=== PATIENT | female | born 1950 | race Caucasian/White ===

== ENCOUNTER 2018-02-28 22:03 | Inpatient (IN) ==
[2018-02-28] MEDS ORDERED: IOPAMIDOL 100 ML BOTTLE IV ONE (22:04)
--- NOTE | 2018-02-28 22:11 | Emergency Department Note ---
Abdominal Pain HPI - General Chief Complaint: Abdominal Pain Stated Complaint: abdominal pain Time Seen by Provider: 02/28/18 22:08 Source: patient Mode of arrival: ambulatory Limitations: no limitations - History of Present Illness HPI Narrative: 67 year old female seen previously on 02/26/18 with RUQ abdominal pain/ epigastric abdominal pain radiating to back, seen in ER with workup including aortic US which was negative for aneurysm/dissection nor other pathology, with CBC demonstrating leukocytosis at 13.8, presenting after improvement of pain last night with opiate therapy. Pain resolved until tonight at 6pm. Last meal at 5pm, then began having significant RUQ abdominal tenderness radiating to back , rated 10/10 currently. Mild nausea, no emesis present. No diarrhea, nor constipation. - Related Data Home Medications Medication Instructions Recorded Confirmed LORazepam [Ativan] 0.5 mg PO BIDP PRN 12/16/16 03/24/17 Metoprolol Tartrate [Lopressor] 50 mg PO BID 12/16/16 03/24/17 Simvastatin [Zocor] 10 mg PO HS 12/16/16 03/24/17 amLODIPine BESYLATE/BENAZEPRIL 1 capsule PO DAILY 12/16/16 03/24/17 [Amlodipine-Benazepril 5-10 mg] Hydrochlorothiazide [Oretic] 12.5 mg PO DAILY 03/24/17 03/24/17 Zolpidem Tartrate [Ambien] 10 mg PO HS 03/24/17 03/24/17 ergocalciferol (vitamin D2) 50,000 50,000 unit PO QWEEK 08/31/17 08/31/17 unit capsule levofloxacin 750 mg tablet 750 mg PO QDAY tab 08/31/17 08/31/17 naproxen 500 mg tablet 250 mg PO BID tab 08/31/17 08/31/17 oxycodone 5 mg tablet 5 mg PO .COMPLEX PRN tab 08/31/17 08/31/17 Allergies Allergy/AdvReac Type Severity Reaction Status Date / Time codeine Allergy Itching Verified 12/29/16 15:07 Review of Systems All systems ED: reviewed and negative except as stated. Abdominal Pain PMH - Past Medical History Attestation: Yes: The following information was validated with the patient. Medical history: Reports: cancer, hyperlipidemia, hypertension - Social History Smoking status: Former smoker Alcohol use: Reports: Occasionally Drug use: Reports: none Physical Exam Limitations: no limitations General appearance: alert, anxious, in no apparent distress Head: atraumatic, normocephalic Eye: Present: normal appearance, PERRL, EOMI ENT: normal exam, normal oropharynx, mucous membranes moist Neck: Present: normal inspection, full ROM Chest: Present: normal inspection, symmetric chest wall rise Respiratory: Present: normal lung sounds bilaterally. Absent: respiratory distress, rales/crackles, wheezes Cardiovascular: Present: regular rate, normal rhythm, normal heart sounds. Absent: systolic murmur, diastolic murmur Abdominal: Present: soft, distention, tenderness, rebound, Jo's sign. Absent: guarding Extremities: Present: normal inspection, full ROM Back: Present: normal inspection, full ROM, tenderness, CVA tenderness (R) Course Vital Signs Temperature 97.6 F 02/28/18 22:04 Pulse Rate 78 02/28/18 22:04 Respiratory Rate 19 02/28/18 22:04 Blood Pressure 108/91 02/28/18 22:04 Pulse Oximetry (%) 98 02/28/18 22:04 Temperature 97.6 F 02/28/18 22:04 Pulse Rate 78 02/28/18 22:04 Respiratory Rate 19 02/28/18 22:04 Blood Pressure 108/91 02/28/18 22:04 Pulse Oximetry (%) 98 02/28/18 22:04 Abdominal Pain - MDM Narrative Medical decision making narrative: with previous leukocytosis at 13.8 and + jo's sign, however also with history of diverticulosis, underwent CT abdomen w/contrast which demonstrated acute gallbladder wall thickening with gallstones present. Patient underwent CBC , lactic acid, lipase, which demonstrated leukocytosis at 11.8. Given 1mg IV Dilaudid with improvement to pain from 10/10 down to 2/10. Consulted general surgery, who agreed to admit patient for acute cholecystitis. Admitted in fair condition. - Lab Data Lab results reviewed: Yes I reviewed the patient's lab results. Result diagrams: 02/28/18 22:15 02/28/18 22:15 Lab Results 02/28/18 02/28/18 Range/Units 22:15 22:15 WBC 11.9 H (4.5-11.0) K/mcL RBC 4.57 (4.00-5.20) M/mcL Hgb 12.5 (12.0-15.0) g/dL Hct 37.7 (36.0-48.0) % MCV 82.6 (80.0-100.0) fL MCH 27.5 (26.0-34.0) pg MCHC 33.3 (31.0-36.0) g/dL RDW 13.1 (11.5-14.5) % Plt Count 262 (140-440) K/mcL MPV 9.1 (7.4-10.4) fL Gran % 79.0 H (38.0-78.0) % Lymph % (Auto) 13.6 L (15.5-49.0) % [facility] % (Auto) 6.3 (1.0-12.0) % Eos % (Auto) 0.7 (0.0-7.0) % Baso % (Auto) 0.4 (0.0-2.0) % Gran # 9.5 H (1.8-8.0) K/mcL Lymph # (Auto) 1.6 (1.5-4.8) K/mcL [facility] # (Auto) 0.7 (0.1-0.9) K/mcL Eos # (Auto) 0.1 (0.0-0.7) K/mcL Baso # (Auto) 0 (0.0-0.3) K/mcL VBG Lactic Acid 1.2 (0.5-2.0) mmol/L - Radiology Data Radiology results reviewed: Yes I reviewed the patient's radiology results. Disposition Pt seen by PIE CHEF/PA only: No Clinical Impression: Acute cholecystitis Disposition: Xfer As Inpt ([facility]) Referrals: Lulu Altamirano ARNP [Primary Care Provider] -
[2018-02-28] MEDS ORDERED: PANTOPRAZOLE 40 MG VIAL IV ONE (22:19)
[2018-02-28] MEDS ORDERED: 0.9 % SODIUM CHLORIDE 1,000 ML IV ONE (22:19)
[2018-02-28] MEDS ORDERED: ONDANSETRON 4 MG/2 ML VIAL IV ONE (22:19)
[2018-02-28] MEDS ORDERED: HYDROmorphone 2 MG/ML VIAL IV SCH (22:30)
[2018-02-28 23:10] LABS: Basophils # (Auto) 0 K/mcL (0.0-0.3); Basophils % (Auto) 0.4 % (0.0-2.0); Eosinophils # (Auto) 0.1 K/mcL (0.0-0.7); Eosinophils % (Auto) 0.7 % (0.0-7.0); Lymphocytes # (Auto) 1.6 K/mcL (1.5-4.8); Lymphocytes % (Auto) 13.6 % (15.5-49.0); Mean Cell Volume 82.6 fL (80.0-100.0); Mean Corpuscular HGB Conc 33.3 g/dL (31.0-36.0); Mean Corpuscular Hemoglobin 27.5 pg (26.0-34.0); Monocytes # (Auto) 0.7 K/mcL (0.1-0.9); Monocytes % (Auto) 6.3 % (1.0-12.0); Platelet Count 262 K/mcL (140-440); RBC 4.57 M/mcL (4.00-5.20); Red Cell Distribution Width 13.1 % (11.5-14.5)
[2018-02-28] MEDS ORDERED: ONDANSETRON 4 MG/2 ML VIAL IV PRN (23:28)
[2018-02-28 23:36] LABS: ALT/SGPT 58 U/l (0-40); Albumin/Globulin Ratio 1.1 (1.0-2.3); Alkaline Phosphatase 187 U/L (39-117); Blood Urea Nitrogen 9 mg/dl (8-23); Lipase 16 U/L (7-60)
[2018-02-28] MEDS: 0.9 % SODIUM CHLORIDE 1,000 ML IV SCH (23:55)
[2018-03-01] MEDS: 0.9 % SODIUM CHLORIDE 10 ML SYRINGE IV SCH ×3 (04:14→20:37)
--- NOTE | 2018-03-01 05:28 | Cat Scan Report ---
CLINICAL INFORMATION: Right-sided abdominal pain. History of lung carcinoma COMPARISON: Chest CT from over one year prior 12/16/2016 TECHNIQUE: Following enteric contrast, 80 cc of Isovue-300 were injected and 60 seconds later, 0.625 mm helical slices were obtained from the mid heart through the iliac crest. Following reconstructions, sagittal, coronal and axial reformations were processed. Exam was reviewed at bone, lung and soft tissue windows Eight minutes later repeat 0.625 mm helical slices were obtained through the kidneys.The exam was performed using radiation dose optimization techniques including, but not limited to, automated exposure control, adjustment of the mA and/or kV according to patient size and use of iterative reconstruction technique. FINDINGS: Lung bases show a small (18 mm) defect in the chest wall in the anterior basilar segment of the left lower lobe region. The deficiency consists of the parietal pleura and intercostal musculature allowing a small focus of lung to herniate through the chest wall. There is a small amount of associated scarring within the lung parenchyma. There are no effusions. Visualized heart is normal. Images through the abdomen again show a 22 mm high attenuation lesion in the posterior segment right hepatic lobe (image 45). It is unchanged from the CT over one year prior and should be considered a benign hemangioma. 15 mm simple cyst in the medial segment left hepatic lobe is also unchanged. The gallbladder wall is now moderately thickened with multiple stones patible with cholecystitis. Intrahepatic and common bile ducts are normal caliber: CBD is 5 mm. Both kidneys, adrenal glands, spleen, pancreas and aorta including aortic branches are normal in size, configuration and attenuation without focal lesion. There is no free air, free fluid or adenopathy. Small diverticuli arising the duodenum are unchanged: 22 mm in the proximal transverse segment and 22 mm the distal transverse segment. The remaining visualized small bowel, stomach and colon are unremarkable. Bone windows show only mild degenerative changes in the lumbar spine. IMPRESSION: 1. Cholecystitis. Bile ducts are normal caliber - no evidence for choledocholithiasis. 2. 22 mm hemangioma posterior segment of the right hepatic lobe and 15 cm simple cyst lateral segment left hepatic lobe are both stable since a CT one year prior. History of lung carcinoma acknowledged - no evidence of abdominal metastases. 3. Small (18 mm) focal chest wall defect, consisting of the parietal pleura and intercostal musculature, in the anterior segment of the left lower lobe. This has allowed a small focus of lung herniation. It is new from the previous CT. It may predispose to future pneumothorax development. 4. Two (20 mm) diverticuli arising from the transverse duodenum - stable Interpreted and Authenticated by: Dimas Quiñonez 03/01/18
[2018-03-01] MEDS: 0.9 % SODIUM CHLORIDE 1,000 ML IV SCH ×6 (06:23→22:04)
[2018-03-01] MEDS ORDERED: HYDROmorphone 2 MG/ML VIAL IV PRN (07:30)
[2018-03-01] MEDS ORDERED: ONDANSETRON 4 MG/2 ML VIAL IV PRN ×3 (07:30→14:39)
[2018-03-01] MEDS ORDERED: PANTOPRAZOLE 40 MG VIAL IV SCH (07:30)
[2018-03-01] MEDS: PIPERACILLIN SODIUM/TAZOBACTAM 3.375 GM in DEXTROSE 5% IN WATER 50 ML IV SCH ×5 (09:18→23:36)
--- NOTE | 2018-03-01 09:26 | XRay Report ---
CLINICAL INFORMATION: preop evaluation COMPARISON: 02/26/2018 FINDINGS: Heart is upper limits normal in size. Mediastinum and pulmonary vessels are unremarkable.. Left upper lobectomy changes featuring increased density in the paramediastinal left upper lobe and left lung volume loss resulting in leftward cardiomediastinal shift are seen as before before. No infiltrates or effusions. Bones and soft tissues normal IMPRESSION: No acute disease - stable Interpreted and Authenticated by: Dimas Quiñonez 03/01/18
--- NOTE | 2018-03-01 10:14 | General Surg History&Physical ---
History of Present Illness Patient information: Note initiated : 03/01/18 at 10:11 am Service Date, if different from initiated Date: [] Patient: Celia Baltazar a 67 y/o F admitted on 02/28/18 for abdominal pain. Chief Complaint: [] HPI: Ms. Baltazar is a 67 year old F admitted with acute abdominal pain with findings of cholecystitis. The patient had onset of epigastric and right upper quadrant pain 2 days prior to admission. She was seen in the emergency room on 26 February and was treated and discharged. Her pain continued and worsened yesterday. She returned to the emergency room where CT scan showed a thickened gallbladder with multiple gallstones. The pain is continuous. She has nausea but no vomiting. She has constant pressure in her upper abdomen and back on the right side.. Patient has acute cholecystitis with cholelithiasis and is admitted for treatment. Review of Systems - Constitutional snoring - EENT Nose, mouth and throat: abnormal hearing, dysphagia, no hoarseness, no vertigo - Breasts no mass, no pain, no swelling - Cardiovascular chest pain with activity, dyspnea on exertion, pedal edema - Respiratory dyspnea on exertion, snoring, pain with cough, no wheezing - Gastrointestinal abdominal pain, bloating, heartburn, nausea, no constipation, no diarrhea, no vomiting - Genitourinary Genitourinary: no difficulty urinating, no urinary incontinence - Musculoskeletal arthralgias, back pain, myalgias - Integumentary no pruritus, no rash, no sores - Neurological restless legs, no confusion, no convulsions, no memory loss, no syncope, no tremor(s) - Psychiatric no anxiety, no depression, no paranoia - Endocrine no fatigue, no palpitations - Hematologic/Lymphatic no easy bleeding, no easy bruising, no lymphadenopathy - Allergic/Immunologic no tongue swelling, no throat swelling, no uticaria, no wheezing, no lip swelling Past History Past medical history: History of lung cancer, status post left upper lobectomy; no chemotherapy needed Hypertension Denies heart disease, lung disease or liver disease, denies bleeding disorder Chronic obstructive sleep apnea, severe Past surgical history: Left upper lobectomy for lung cancer Past family history: Mother age 76 due to lung cancer Father age 81 due to abdominal aortic aneurysm rupture Diabetes mellitus and coronary artery disease Past social history: Stop tobacco use in 2016 History of heavy alcohol use up to 1 pint per day stopped 10 months ago No drug use in the past 30 years Medications and Allergies Home Medications Medication Instructions Recorded Confirmed Type Metoprolol Tartrate [Lopressor] 50 mg PO BID 12/16/16 03/01/18 History Simvastatin [Zocor] 10 mg PO HS 12/16/16 03/01/18 History amLODIPine BESYLATE/BENAZEPRIL 1 capsule PO DAILY 12/16/16 03/01/18 History [Amlodipine-Benazepril 5-10 mg] Allergies Allergy/AdvReac Type Severity Reaction Status Date / Time codeine Allergy Itching Verified 12/29/16 15:07 Exam Temp Pulse Resp BP Pulse Ox 97.2 F 84 18 128/77 94 03/01/18 07:34 03/01/18 04:00 03/01/18 07:34 03/01/18 07:34 03/01/18 07:34 - General physical appearance well developed, well nourished, no distress, moderate pain - Eyes PERRL, normal ocular movement. negative: icteric - ENT normal pinna, normal nares, normal mucosa, no congestion, decreased hearing, poor senior care (multiple missing teeth) - Head Head exam IM: Present: atraumatic, normal inspection, normocephalic - Neck no masses, no bruits, trachea midline, no lymphadenopathy, no venous distension - Cardiovascular Cardiovascular exam IM: Present: normal rate and rhythm, RRR, +S1, +S2. Absent : JVD, tachycardia - Respiratory normal expansion, normal respiratory effort, clear to auscultation - Abdomen Abdomen: Present: soft, non tender, bowel sounds Hernia: Present: none - Genitourinary Present: normal external genitalia - Integumentary Present: no rash, no growths, no abnormal pigmentation - Neurologic Present: normal coordination, normal sensation - Musculoskeletal Present: normal gait, normal posture - Psychiatric Present: oriented to time, oriented to person, oriented to place, speech is normal, memory intact Assessment and Plan (1) Cholelithiasis and cholecystitis without obstruction Patient counseled for laparoscopic cholecystectomy which will be done later today Status: Acute (2) Chronic intermittent hypoxia with obstructive sleep apnea Status: Acute (3) History of lung cancer Status: Chronic (4) Bipolar disorder Status: Chronic (5) Hypertension Status: Chronic
[2018-03-01] MEDS ORDERED: GLYCOPYRROLATE 0.2 MG/ML VIAL IV ONE (12:20)
[2018-03-01] MEDS ORDERED: MIDAZOLAM 2 MG/2 ML VIAL IV ONE (12:20)
[2018-03-01] MEDS ORDERED: KETAMINE 100 MG/ML ML IV ONE (12:20)
[2018-03-01] MEDS ORDERED: PROPOFOL 200 MG/20 ML VIAL IV ONE (12:20)
[2018-03-01] MEDS ORDERED: fentaNYL 100 MCG/2 ML VIAL IV ONE ×2 (12:20→13:36)
[2018-03-01] MEDS ORDERED: LIDOCAINE HCL/PF 100 MG/5 ML SYRINGE IV ONE (12:20)
[2018-03-01] MEDS ORDERED: ONDANSETRON 4 MG/2 ML VIAL IV ONE (12:20)
--- NOTE | 2018-03-01 13:18 | Brief Operative Note ---
Date of procedure: 03/01/18 Pre-op diagnosis: ACUTE CHOLECYSTITIS WITH CHOLELITHIASIS Post-op diagnosis: other (ACUTE CHOLECYSTITIS WITH CHOLELITHIASIS) Procedure: LAPAROSCOPIC CHOLECYSTECTOMY Grafts/Implants: No Anesthesia: GETA Findings: ACUTE AND CHRONIC INFLAMMATION OF GALLBLADDER WITH STONES Complications: none Surgeon: Adrian Silver Estimated blood loss (cc): 10 Specimens Removed/Pathology: other (GALLBLADDER) Condition: stable Disposition: PACU
[2018-03-01] MEDS ORDERED: MEPERIDINE 50 MG/ML INJECTION IM PRN (13:36)
[2018-03-01] MEDS ORDERED: ACETAMINOPHEN 1,000 MG/100 ML BOTTLE IV ONE (13:36)
[2018-03-01] MEDS ORDERED: KETOROLAC 15 MG/ML VIAL IV PRN (13:36)
[2018-03-01] MEDS ORDERED: IPRATROPIUM/ALBUTEROL 3 ML AMPUL.NEB NEB PRN (13:36)
[2018-03-01] MEDS ORDERED: MEPERIDINE 25 MG/ML SYRINGE IV PRN (13:36)
[2018-03-01] MEDS ORDERED: PROMETHAZINE 25 MG/ML VIAL IM PRN (13:36)
[2018-03-01] MEDS: fentaNYL 100 MCG/2 ML VIAL IV PRN ×4 (13:38→14:17)
[2018-03-01] MEDS ORDERED: LACTATED RINGERS 1,000 ML IV SCH (13:45)
[2018-03-01] MEDS: HYDROmorphone 2 MG/ML VIAL IV PRN ×3 (14:50→22:06)
[2018-03-01] MEDS: PANTOPRAZOLE 40 MG VIAL IV SCH (17:37)
[2018-03-02] MEDS: HYDROmorphone 2 MG/ML VIAL IV PRN ×4 (02:05→10:38)
[2018-03-02 05:57] LABS: Basophils # (Auto) 0 K/mcL (0.0-0.3); Basophils % (Auto) 0 % (0.0-2.0); Eosinophils # (Auto) 0 K/mcL (0.0-0.7); Eosinophils % (Auto) 0 % (0.0-7.0); Granulocytes % (Auto) 90.5 % (38.0-78.0); Lymphocytes # (Auto) 0.9 K/mcL (1.5-4.8); Lymphocytes % (Auto) 5.1 % (15.5-49.0); Mean Cell Volume 85.1 fL (80.0-100.0); Mean Corpuscular HGB Conc 33.7 g/dL (31.0-36.0); Mean Corpuscular Hemoglobin 28.7 pg (26.0-34.0); Monocytes # (Auto) 0.8 K/mcL (0.1-0.9); Monocytes % (Auto) 4.4 % (1.0-12.0); Platelet Count 238 K/mcL (140-440); RBC 3.75 M/mcL (4.00-5.20); Red Cell Distribution Width 14.5 % (11.5-14.5)
[2018-03-02] MEDS: PIPERACILLIN SODIUM/TAZOBACTAM 3.375 GM in DEXTROSE 5% IN WATER 50 ML IV SCH ×2 (06:04→11:22)
[2018-03-02] MEDS: 0.9 % SODIUM CHLORIDE 10 ML SYRINGE IV SCH (06:05)
[2018-03-02] MEDS: PANTOPRAZOLE 40 MG VIAL IV SCH (06:54)
--- NOTE | 2018-03-02 13:25 | Discharge Summary ---
Providers - Providers Patient information: Note initiated : 03/02/18 at 1:23 pm Service Date, if different from initiated Date: [] Patient: Celia Baltazar 67 y/o F admitted on 02/28/18 for abdominal pain. Chief Complaint: [] Date of admission: 02/28/18 Discharge date: 03/02/18 Attending physician: Adrian Silver Hospitalization Hospital course: 67-year-old female with diagnosed gallstone disease who presents with acute abdominal pain nausea and vomiting. She had evidence of gallstones thickened gallbladder wall and leukocytosis. Patient underwent laparoscopic cholecystectomy yesterday. She had very thickened gallbladder packed with gallstones with purulent bile. She had successful cholecystectomy. She had moderate pain in the postoperative period but is now stable. She is discharged home in satisfactory condition. She will have follow-up in the office on 14 March. Discharge diagnosis: acute and chronic cholecystitis with cholelithiasis Secondary discharge diagnosis: Chronic obstructive lung disease Chronic obstructive sleep apnea History of lung cancer Reason for admission: abdominal pain nausea and vomiting Procedures: Laparoscopic cholecystectomy Pertinent studies/significant findings: CT of abdomen and pelvis with contrast Complications: None Exam Temp Pulse Resp BP Pulse Ox 98 F 84 20 120/65 95 03/02/18 11:57 03/02/18 03:57 03/02/18 11:57 03/02/18 11:57 03/02/18 11:57 - General physical appearance well developed, well nourished, no distress - Eyes PERRL, normal ocular movement - ENT normal pinna, normal nares, normal mucosa, no hearing loss, no congestion - Head Head exam IM: Present: atraumatic, normocephalic - Neck no masses, no bruits, trachea midline, no lymphadenopathy, no venous distension - Cardiovascular Cardiovascular exam IM: Present: normal rate and rhythm, RRR, +S1, +S2. Absent : JVD, tachycardia - Respiratory normal expansion, normal respiratory effort, clear to auscultation - Abdomen Abdomen: Present: soft, tender (mild tenderness both operative sites otherwise benign exam), bowel sounds Hernia: Present: none - Genitourinary Present: normal external genitalia - Integumentary Present: no rash, no growths, no abnormal pigmentation - Neurologic Present: normal coordination, normal sensation - Musculoskeletal Present: normal gait, normal posture - Psychiatric Present: oriented to time, oriented to person, oriented to place, speech is normal, memory intact Discharge Plan - Patient/Caregiver Discharge Instructions Activity: increase activity as tolerated Diet: Regular Diet, Low Fat Prescriptions: Ciprofloxacin [Cipro] 500 mg PO BID #14 tab Meperidine [Demerol] 50 mg PO Q4HP PRN #30 tab PRN Reason: Pain Level > 6 - Follow up Plan Follow up with: Lulu Altamirano ARNP [Primary Care Provider] - Disposition: Home, Self-Care Prognosis: Good Rehab Potential: Good I certify that the patient requires SNF services.: No Overall status at discharge: patient is not back to baseline Pending Studies Resuscitation Status Full Code Diet Regular Diet Start Sat Mar 02 637 Hydromorphone HCl (Dilaudid) 1 mg IV Q2HP PRN PRN Reason: PAIN LEVEL > 6 Last Admin: 03/02/18 10:38 Dose: 1 mg Admin: 03/02/18 08:00 Dose: 1 mg Admin: 03/02/18 04:25 Dose: 1 mg Admin: 03/02/18 02:05 Dose: 1 mg Admin: 03/01/18 22:06 Dose: 1 mg Admin: 03/01/18 18:54 Dose: 1 mg Admin: 03/01/18 14:50 Dose: 1 mg Piperacillin Sod/Tazobactam (Sod 3.375 gm/ Dextrose) 50 mls @ 100 mls/hr IV Q6H [facility] Last Admin: 03/02/18 11:22 Dose: 100 mls/hr Infusion: 03/02/18 06:40 Dose: 0 mls/hr Admin: 03/02/18 06:04 Dose: 100 mls/hr Infusion: 03/02/18 00:06 Dose: 100 mls/hr Admin: 03/01/18 23:36 Dose: 100 mls/hr Infusion: 03/01/18 19:20 Dose: 100 mls/hr Admin: 03/01/18 18:50 Dose: 100 mls/hr Infusion: 03/01/18 15:31 Dose: 0 mls/hr Admin: 03/01/18 14:51 Dose: 100 mls/hr Pantoprazole Sodium (Protonix) 40 mg IV BIDAC [facility] Last Admin: 03/02/18 06:54 Dose: 40 mg Admin: 03/01/18 17:37 Dose: 40 mg Sodium Chloride (Saline Flush) 10 ml IV Q8 PITO Last Admin: 03/02/18 06:05 Dose: 10 ml Admin: 03/01/18 20:37 Dose: Not Given Shift Summary 03/02/18 04:45 Shift Summary by Silvia Patton Pt is up to bathroom with SBA to at rosa maria. IV SL receiving ABO. Pt receiving Dilaudid 1mg for pain last given at 0400. Pt hopes to discharge today. Will update with verbal report. Initialized on 03/02/18 04:45 - END OF NOTE
--- NOTE | 2018-03-05 17:21 | Surgical Pathology Report ---
HISTOLOGY SPECIMEN MICROSCOPIC DIAGNOSIS GALLBLADDER, CHOLECYSTECTOMY: -- ACUTE AND CHRONIC CHOLECYSTITIS WITH ADENOMYOMATOUS HYPERPLASIA AND CHOLELITHIASIS. (RLF:sln) PROCEDURAL IMPRESSION Cholecystitis; cholelithiasis. GROSS DESCRIPTION Received in formalin labeled with the patient information, is a almonte-stewart gallbladder. It is 6.7 x 3.4 x 2.1 cm. There are multiple metal clips identified. The duct is stapled. This is inked black. There is a 0.8 cm stone wedged into the duct. The mucosa is pink-stewart and covered with clear viscous fluid. The wall contains black stones from less less than 0.1 to 0.8 cm and has multiple cavities from less than 0.1 to 1.1 cm. The wall is up to 0.7 cm thick. Naphthalene Operator sections submitted in two cassettes. (SCB:adj) Electronically Signed by: Kaila Polanco M.D.
--- NOTE | 2018-03-06 14:04 | Operative Note ---
DATE OF OPERATION: 03/01/2018 PEOPERATIVE DIAGNOSIS: Acute cholecystitis with cholelithiasis. POSTOPERATIVE DIAGNOSIS: Acute cholecystitis with cholelithiasis. PROCEDURE: Laparoscopic cholecystectomy. SURGEON: Adrian Silver MD FINDINGS: Acute and chronic inflammation of the gallbladder with stones. DESCRIPTION OF PROCEDURE: Under general anesthesia, the patient's abdomen was prepped and draped in the sterile field. A time-out procedure was carried out as per protocol. A supraumbilical midline incision was made and Veress needle was inserted. Abdomen was insufflated with 2.5 liters of CO2. A 12 mm port was placed. Laparoscope was placed. Under videoscopic guidance, a 12 mm port and two 5 mm ports were placed in the right subcostal region. There was acute and chronic inflammation of the gallbladder with dense adhesions. Adhesions were taken down with EndoShears and electrocautery. The gallbladder was then positioned such that I could dissect the infundibulum. She had a short cystic duct, which was followed back to the gallbladder. Cystic artery branch was isolated and followed onto the wall of the gallbladder. Cystic duct was very thick, so it was transected using an Endo-EVELIN stapler at its junction with the gallbladder. Cystic artery was clipped with 4 clips and divided. The gallbladder was then from the infrahepatic bed using electrocautery. It was placed in an Endopouch and retrieved. Irrigation was carried out until the fluid returned clear. There was no bleeding from the bed. CO2 was allowed to escape from the abdomen and the ports were removed. Fascia at the umbilicus was closed with interrupted 0 Vicryl. Skin incisions were closed with toño. Tegaderm dressings were placed. The patient tolerated the procedure well. She was awakened, transferred to a bed and taken to the postanesthetic care unit in stable, satisfactory condition. LCS:jose Job ID: [id number] Doc ID: [id number] Adrian Silver M.D.
== END 2018-03-02 14:10 | disposition home or self-care (01) | DRG 419 ==
LOC: ED 22:03 → MEDSUR 23:37
PROVIDERS: ADMIT Family Medicine Adult Medicine; ATTEND Family Medicine Adult Medicine

== ENCOUNTER 2024-04-01 08:41 | Inpatient (IN) ==
[2024-04-01] MEDS ORDERED: IOPAMIDOL 100 ML BOTTLE IV ONE (08:42)
[2024-04-01] MEDS: ONDANSETRON 4 MG/2 ML VIAL IV ONE (09:18)
[2024-04-01] MEDS: HYOSCYAMINE SULFATE 0.125 MG TABLET SL ONE (09:18)
[2024-04-01 09:30] LABS: Basophils # (Auto) 0.01 K/mcL (0.00-0.30); Basophils % (Auto) 0.1 % (0.0-2.0); Eosinophils # (Auto) 0.04 K/mcL (0.00-0.70); Eosinophils % (Auto) 0.3 % (0.0-7.0); Hemoglobin 11.8 g/dL (11.2-15.7); Lymphocytes # (Auto) 0.96 K/mcL (1.50-4.80); Lymphocytes % (Auto) 6.3 % (15.5-49.0); Mean Cell Volume 84.9 fL (80.0-100.0); Mean Corpuscular HGB Conc 32.8 g/dL (31.0-36.0); Mean Platelet Volume 10.2 fL (8.8-12.5); Monocytes # (Auto) 0.88 K/mcL (0.10-0.90); Monocytes % (Auto) 5.8 % (1.0-12.0); Platelet Count 260 K/mcL (140-440); RBC 4.24 M/mcL (3.59-5.38); Red Cell Distribution Width 12.9 % (11.5-14.5); WBC 15.3 K/mcL (4.5-11.0)
[2024-04-01 10:00] LABS: ALT/SGPT 17 U/L (<40); AST/SGOT 19 U/L (<32); Albumin 3.7 gm/dL (3.2-5.2); Albumin/Globulin Ratio 1.1 (1.0-2.3); Alkaline Phosphatase 101 U/L (39-117); Bilirubin,Total 0.3 mg/dL (0.1-1.0); Blood Urea Nitrogen 11 mg/dL (8-23); Calcium 9.1 mg/dL (8.6-10.4); Carbon Dioxide 24 mmol/L (22-30); Chloride 97 mmol/L (96-108); Globulin 3.4 gm/dL (2.2-3.7); Glomerular Filtration Rate 56; Glucose 115 mg/dL (70-105); Potassium 3.4 mmol/L (3.3-5.1); Sodium 137 mmol/L (133-145)
[2024-04-01] MEDS: ACETAMINOPHEN 325 MG TABLET PO ONE (16:21)
[2024-04-01] MEDS ORDERED: HYDROmorphone 0.5 MG/0.5 ML SYRINGE IV PRN (17:03)
[2024-04-01] MEDS ORDERED: POLYETHYLENE GLYCOL 3350 17 GM PACKET PO PRN (17:03)
[2024-04-01] MEDS: cefTRIAXone 1 GM VIAL IV SCH (17:42)
[2024-04-01] MEDS: 0.9 % SODIUM CHLORIDE 1,000 ML IV SCH (17:42)
[2024-04-01] MEDS: metroNIDAZOLE 500 MG/100 ML BAG IV SCH (17:43)
[2024-04-01] MEDS: SENNOSIDES 1 TABLET PO SCH (23:29)
[2024-04-01] MEDS: 0.9 % SODIUM CHLORIDE 10 ML SYRINGE IV SCH (23:30)
[2024-04-02 05:54] LABS: Basophils # (Auto) 0.01 K/mcL (0.00-0.30); Basophils % (Auto) 0.1 % (0.0-2.0); Eosinophils # (Auto) 0.07 K/mcL (0.00-0.70); Eosinophils % (Auto) 0.6 % (0.0-7.0); Hematocrit 32.4 % (34.1-44.9); Hemoglobin 10.7 g/dL (11.2-15.7); Lymphocytes # (Auto) 1.12 K/mcL (1.50-4.80); Lymphocytes % (Auto) 9.2 % (15.5-49.0); Mean Cell Volume 85.5 fL (80.0-100.0); Monocytes # (Auto) 0.84 K/mcL (0.10-0.90); Monocytes % (Auto) 6.9 % (1.0-12.0); Neutrophils % (Auto) 82.4 % (38.0-78.0); Platelet Count 212 K/mcL (140-440); RBC 3.79 M/mcL (3.59-5.38); WBC 12.2 K/mcL (4.5-11.0)
[2024-04-02] MEDS: ACETAMINOPHEN 500 MG TABLET PO PRN (07:43)
[2024-04-02 07:48] LABS: ALT/SGPT 14 U/L (<40); AST/SGOT 17 U/L (<32); Albumin 3.4 gm/dL (3.2-5.2); Albumin/Globulin Ratio 1.1 (1.0-2.3); Alkaline Phosphatase 88 U/L (39-117); Bilirubin,Direct 0.2 mg/dL (<0.3); Bilirubin,Total 0.4 mg/dL (0.1-1.0); Blood Urea Nitrogen 10 mg/dL (8-23); Calcium 8.6 mg/dL (8.6-10.4); Carbon Dioxide 25 mmol/L (22-30); Chloride 100 mmol/L (96-108); Globulin 3.1 gm/dL (2.2-3.7); Glomerular Filtration Rate 91; Glucose 84 mg/dL (70-105); Lactate Dehydrogenase 152 U/L (135-225); Phosphorous 3.7 mg/dL (2.5-4.5); Potassium 2.8 mmol/L (3.3-5.1); Sodium 140 mmol/L (133-145); Triglycerides 67 mg/dL (<150); Uric Acid 6.4 mg/dL (2.5-8.0)
[2024-04-02] MEDS: POTASSIUM CHLORIDE 20 MEQ PACKET PO ONE ×2 (07:58→11:21)
[2024-04-02] MEDS: ENOXAPARIN 40 MG/0.4 ML SYRINGE SQ SCH (08:38)
[2024-04-02] MEDS: MAGNESIUM SULFATE 1 GM/100 ML BAG IV ONE (10:06)
[2024-04-02] MEDS: oxyCODONE IR 5 MG TABLET PO PRN (14:12)
[2024-04-02] MEDS: KETOROLAC 15 MG/ML VIAL IV PRN (19:18)
[2024-04-03 06:45] LABS: Basophils # (Auto) 0.01 K/mcL (0.00-0.30); Basophils % (Auto) 0.1 % (0.0-2.0); Eosinophils # (Auto) 0.13 K/mcL (0.00-0.70); Eosinophils % (Auto) 1.5 % (0.0-7.0); Hematocrit 30.7 % (34.1-44.9); Hemoglobin 10.1 g/dL (11.2-15.7); Lymphocytes # (Auto) 1.19 K/mcL (1.50-4.80); Lymphocytes % (Auto) 14.1 % (15.5-49.0); Mean Cell Volume 85.8 fL (80.0-100.0); Mean Corpuscular HGB Conc 32.9 g/dL (31.0-36.0); Mean Platelet Volume 10.3 fL (8.8-12.5); Monocytes # (Auto) 0.65 K/mcL (0.10-0.90); Monocytes % (Auto) 7.7 % (1.0-12.0); Neutrophils % (Auto) 75.8 % (38.0-78.0); Platelet Count 223 K/mcL (140-440); RBC 3.58 M/mcL (3.59-5.38); Red Cell Distribution Width 13.1 % (11.5-14.5); WBC 8.5 K/mcL (4.5-11.0)
[2024-04-03 07:18] LABS: ALT/SGPT 13 U/L (<40); AST/SGOT 16 U/L (<32); Albumin 3.2 gm/dL (3.2-5.2); Albumin/Globulin Ratio 1.1 (1.0-2.3); Alkaline Phosphatase 82 U/L (39-117); Bilirubin,Direct < 0.2 mg/dL (0-0.3); Bilirubin,Total < 0.2 mg/dL (0.1-1.0); Blood Urea Nitrogen 9 mg/dL (8-23); Calcium 8.6 mg/dL (8.6-10.4); Carbon Dioxide 24 mmol/L (22-30); Chloride 101 mmol/L (96-108); Globulin 2.8 gm/dL (2.2-3.7); Glomerular Filtration Rate 91; Glucose 102 mg/dL (70-105); Lactate Dehydrogenase 154 U/L (135-225); Phosphorous 3.2 mg/dL (2.5-4.5); Potassium 3.6 mmol/L (3.3-5.1); Sodium 137 mmol/L (133-145); Triglycerides 60 mg/dL (<150)
[2024-04-03] MEDS ORDERED: ALBUTEROL SULFATE 60 PUFF INHALER INH PRN (08:31)
[2024-04-03] MEDS: OMEPRAZOLE 20 MG CAPSULE PO SCH (08:42)
[2024-04-03] MEDS: LORazepam 1 MG TABLET PO PRN (08:42)
[2024-04-03] MEDS: ONDANSETRON 4 MG/2 ML VIAL IV PRN (08:46)
[2024-04-03] MEDS ORDERED: IOPAMIDOL 100 ML BOTTLE IV ONE (10:29)
[2024-04-03] MEDS: ACETAMINOPHEN 500 MG TABLET PO PRN (17:09)
[2024-04-03] MEDS: METOPROLOL TARTRATE 50 MG TABLET PO SCH (20:27)
[2024-04-03] MEDS: ATORVASTATIN 40 MG TABLET PO SCH (20:27)
[2024-04-04 06:58] LABS: ALT/SGPT 13 U/L (<40); AST/SGOT 20 U/L (<32); Albumin 3.5 gm/dL (3.2-5.2); Albumin/Globulin Ratio 1.1 (1.0-2.3); Alkaline Phosphatase 88 U/L (39-117); Bilirubin,Direct < 0.2 mg/dL (0-0.3); Bilirubin,Total 0.2 mg/dL (0.1-1.0); Blood Urea Nitrogen 4 mg/dL (8-23); Calcium 8.9 mg/dL (8.6-10.4); Carbon Dioxide 23 mmol/L (22-30); Chloride 100 mmol/L (96-108); Globulin 3.1 gm/dL (2.2-3.7); Glomerular Filtration Rate 96; Glucose 118 mg/dL (70-105); Lactate Dehydrogenase 185 U/L (135-225); Phosphorous 3.1 mg/dL (2.5-4.5); Potassium 3.7 mmol/L (3.3-5.1); Sodium 136 mmol/L (133-145); Triglycerides 76 mg/dL (<150); Uric Acid 5.5 mg/dL (2.5-8.0)
[2024-04-04 08:11] VITALS: TEMP 97.2; O2SAT 99
[2024-04-04] MEDS ORDERED: AMLODIPINE BENAZEPRIL PO SCH (09:00)
[2024-04-04] MEDS: LISINOPRIL 10 MG TABLET PO SCH (09:10)
[2024-04-04] MEDS: amLODIPine 5 MG TABLET PO SCH (09:10)
[2024-04-04] MEDS: HYDROCHLOROTHIAZIDE 25 MG TABLET PO SCH (09:10)
[2024-04-04] MEDS: CIPROFLOXACIN 500 MG TABLET PO ONE (11:58)
== END 2024-04-04 11:45 | disposition home or self-care (01) | DRG 392 ==
LOC: ED 08:41 → MEDSUR 16:24
PROVIDERS: ADMIT Internal Medicine; ATTEND Internal Medicine